=== PATIENT | female | born 1980 | race Caucasian/White ===

== ENCOUNTER 2018-10-30 15:16 | Emergency (ER) | payer SELFPAY ==
[2018-10-30 15:27] VITALS: BP 157/96; PULSE 80; RESP 18; TEMP 36.5; O2SAT 99
--- NOTE | 2018-10-30 15:55 | DI.RAD_ITS ---
SYMPTOM/DIAGNOSIS: CHEST PAIN PA AND LATERAL CHEST: Comparison is made with 01/20/12. The cardiac and mediastinal contours have a normal appearance. The lungs are well inflated and clear. No infiltrate or effusion is seen. IMPRESSION: Negative chest xray.
[2018-10-30] MEDS: Famotidine 20 MG TAB 40 MG PO (16:06)
[2018-10-30 17:17] LABS: Abs Immature Grans 0.02 k/cumm (0.0-0.09); Absolute Basophil Count 0.05 k/cumm (0.0-0.2); Absolute Lymphocyte Count 2.78 k/cumm (1.2-3.4); Absolute Monocyte Count 0.59 k/cumm (0.11-0.7); Absolute Neutrophil Count 4.46 k/cumm (1.2-6.7); Basophils % 0.6; Eosinophils % 3.7; HCT 41.5 % (36.0-46.0); HGB 14.6 g/dL (12.0-15.5); Immature Grans % 0.2; Lymphocytes % 33.9; Mean Corp. HGB Concentration 35.2 g/dL (32.0-36.0); Mean Corpuscular Hemoglobin 31.7 pg (27.0-33.0); Mean Platelet Volume 9.6 fL (8.0-11.0); Monocytes % 7.2; Neutrophils % 54.4; Platelet Count 304 x1000/uL (130-400); RBC 4.61 m/cumm (4.00-5.20); RBC Distribution Width 12.6 % (11.7-14.6)
[2018-10-30 17:33] LABS: ALT 50 U/L (12-78); AST 24 U/L (15-37); Albumin 4.6 g/dL (3.4-5.0); Alkaline Phosphatase 93 U/L (46-116); Anion Gap 10.9 mmol/L (3-11); BUN 14 mg/dL (7-18); Bilirubin, Total 0.4 mg/dL (0.2-1.0); CO2 27.1 mmol/L (21.0-32.0); CREATININE 0.99 mg/dL (0.55-1.02); Calcium 9.8 mg/dL (8.5-10.1); Chloride 101 mmol/L (98-107); Glucose 92 mg/dL (70-100); Sodium 139 mmol/L (136-145); Total Protein 8.1 g/dL (6.4-8.2)
[2018-10-30 17:35] LABS: Lipase 135 U/L (73-393); Troponin I < 0.02 ng/mL (0.00-0.06)
--- NOTE | 2018-10-30 17:45 | DI.VRAD_ITS ---
EXAM: XR Chest, 2 Views EXAM DATE/TIME: 10/30/2018 4:47 PM CLINICAL HISTORY: 37 years old, female; Chest pain; Type not specified TECHNIQUE: Imaging protocol: XR of the chest, 2 views. COMPARISON: CR CHEST 2 VIEWS PA,LAT 01/20/2012 1:16 PM FINDINGS: Lungs: Unremarkable. No consolidation. Pleural space: Unremarkable. No pleural effusion. No pneumothorax. Heart/Mediastinum: Unremarkable. No cardiomegaly. Bones/joints: Unremarkable. IMPRESSION: Negative chest. Dictated and Authenticated by: Janes Calles MD. Ordering:CLAUDY Tran MD
[2018-10-30 18:58] VITALS: RESP 18
--- NOTE | 2018-10-30 19:32 | ED.GENADUL_ITS ---
Discharge Plan Discharge Details Chief Complaint: Chest Pain Primary Care Provider: Calixto Rodriguez ED Provider: Marc Castillo Home Meds and New Rx's Prescriptions: No Action cetirizine [Zyrtec] 10 MG tablet 10 mg PO DAILY RF: 0 albuterol sulfate [ProAir HFA] 8.5 GM HFA aerosol inhaler 1 - 2 puff Inhalation Q6H PRN Qty: 1 RF: 3 levothyroxine 137 mcg tablet 137 mcg PO DAILY Qty: 90 RF: 0 multivitamin Tablet 1 tab PO DAILY RF: 0 Discharge Data Discharge Date/Time-TO BE ENTERED AT DEPARTURE: 10/30/18 19:36 Medical Decision Making 37yo f with history of asthma, hypothyroidsim and PCOS, here with upper abdominal pain that radiates to her back and feels exactly the same as prior episode of pancreatitis. ecg reviewed and interpreted by me: nsr 76bpm, nl axis, nondiagnsotic. Concern for pancreatitis. Consider AAA - low risk. I reviewed prior imagind report from abdominal ultrasound 09/08/16: IMPRESSION: 1. Cholelithiasis. Gallbladder wall thickening and mild pericholecystic fluid. Mild acute cholecystitis cannot be excluded. Please correlate clinically. 2. Mild splenomegaly. Consider ulcer and unlikely perforated viscous - no peritoneal findings on exam. cxr was obtained and reviewed by radiology: FINDINGS: Lungs: Unremarkable. No consolidation. Pleural space: Unremarkable. No pleural effusion. No pneumothorax. Heart/Mediastinum: Unremarkable. No cardiomegaly. Bones/joints: Unremarkable. IMPRESSION: Negative chest. Labs reviewed and nondiagnostic. Lipase wnl. No leukocytosis. Plan to reassess patient and discuss additional diagnostics. Patient was noted by nursing to elope from the ED while I was treating a patient with critical illness. I did not have an opportunity to reassess patient or to discuss additional diagnostic or treatment options with the patient. Please note that documentation of this visit was unintentionally delayed. HPI General Mode of arrival: ambulatory . Date/Time Provider Initiated Documentation: 10/30/18 15:29 . Limitations to Documentation: no limitations . Information obtained by: patient . HPI Narrative: 37yo f here with chief complaint of abdominal pain. Pain started 2 days ago and has been intermittent. Pain is described as dull throbbing. Localized to mid upper abdomen, epigastric and radiates to back. Pain feels exactly like when she had pancreatitis in the past. No associated fever. No vomiting. No chest pain. Related Data Home Medications Medication Instructions Recorded Confirmed cetirizine [Zyrtec] 10 mg PO DAILY tab-cap 03/20/14 10/30/18 albuterol sulfate [Proair Hfa] 1 - 2 puff INHALATION Q6H PRN #1 01/07/17 10/30/18 inhaler levothyroxine 137 mcg tablet 137 mcg PO DAILY #90 tab 05/14/18 10/30/18 multivitamin 1 tab PO DAILY 10/30/18 10/30/18 Previous Rx's Medication Instructions Recorded levothyroxine 137 mcg tablet 137 mcg PO DAILY #90 tab 05/14/18 Allergies Allergy/AdvReac Type Severity Reaction Status Date / Time Seasonal Allergies Allergy Mild Itchy Uncoded 10/30/18 19:00 water eyes, stuffy nose General Stated Complaint: Chest Pain BO: 2 Review of Systems Review of Systems All systems reviewed & are unremarkable except as noted in HPI and below Constitutional Denies fever(s) Cardiovascular Denies chest pain, Denies diaphoresis, Denies syncope, Denies edema, Denies palpitations and Denies dyspnea Respiratory Denies dyspnea Gastrointestinal Reports as per HPI and Reports abdominal pain Neurologic Denies syncope Endocrine Denies palpitations PFSH Medical History Asthma Hypothyroid PCOS (polycystic ovarian syndrome) Seasonal allergies Surgical History Cholecystectomy (09/10/16) retinal tear repair Family History Mother Diabetes Heart disease Grandfather Brain cancer Social History Smoking/Tobacco Use Status: Never Drug use: Never Do you feel safe in your relationship?: Yes Exam Const General: cooperative and no acute distress HENPA Mouth: moist mucous membranes Eyes Conjunctivae: normal conjunctivae Sclera: normal sclerae Neck Neck: trachea midline Resp Auscultation: clear to auscultation bilaterally, no rales, no rhonchi and no wheezes Cardio Jugular venous pressure: no JVD Rate: regular rate and not tachycardic Rhythm: regular rhythm GI Inspection: non-distended Palpation: soft, not firm, no guarding, no hepatomegaly, no masses, not rigid, no splenomegaly, tender in the epigastrum and No ascites Auscultation: normal bowel sounds Skin General skin exam: no rashes or lesions noted Neuro General: alert, awake and tone normal Extrem General: no edema Psych Appearance: grossly normal Mental Status: mental status grossly normal Course Vital Signs Temperature 36.5 C 10/30/18 15:27 Pulse 80 10/30/18 15:27 Respiratory Rate 18 10/30/18 15:27 Blood Pressure 157/96 H 10/30/18 15:27 Pulse Oximetry 99 10/30/18 15:27 Temperature 36.5 C 10/30/18 15:27 Temperature Source Temporal Artery Scan 10/30/18 15:27 Pulse 80 10/30/18 15:27 Respiratory Rate 18 10/30/18 18:58 Respiratory Effort Non-Labored 10/30/18 18:58 Respiratory Depth Normal 10/30/18 18:58 Respiratory Pattern Normal 10/30/18 18:58 Blood Pressure 157/96 H 10/30/18 15:27 Pulse Oximetry 99 10/30/18 15:27 Oxygen Delivery Method Room Air 10/30/18 15:27 Oxygen Flow Rate 0 10/30/18 15:27 Pain Level 7 10/30/18 18:58 Lab/Test Results Lab/Test Results: Laboratory Tests Range/Units 10/30/18 10/30/18 10/30/18 13:45 13:45 13:45 WBC Cancelled RBC Cancelled Hgb Cancelled Hct Cancelled MCV Cancelled MCH Cancelled MCHC Cancelled RDW Cancelled Plt Count Cancelled MPV Cancelled Immature Gran % Cancelled Neutrophils % Cancelled Band Neutrophils % Cancelled Lymphocytes % Cancelled Atypical Lymphs % Cancelled Monocytes % Cancelled Eosinophils % Cancelled Basophils % Cancelled Metamyelocytes % Cancelled Myelocytes % Cancelled Promyelocytes % Cancelled Absolute Neutrophils Cancelled Absolute Lymphocytes Cancelled Absolute Monocytes Cancelled Absolute Eosinophils Cancelled Absolute Basophils Cancelled Nucleated RBCs Cancelled Differential Comment Cancelled Other Cell Type Cancelled RBC Morphology Cancelled Polychromasia Cancelled Hypochromasia Cancelled Poikilocytosis Cancelled Basophilic Stippling Cancelled Anisocytosis Cancelled Microcytosis Cancelled Macrocytosis Cancelled Spherocytes Cancelled Target Cells Cancelled Tear Drop Cells Cancelled Ovalocytes Cancelled Stomatocytes Cancelled Antoine-Wadsworth Bodies Cancelled Lakia Cells Cancelled Acanthocytes (Spur) Cancelled Schistocytes Cancelled Sodium Cancelled Potassium Cancelled Chloride Cancelled Carbon Dioxide Cancelled Anion Gap Cancelled BUN Cancelled Creatinine Cancelled Estimated GFR/1.73 m2 Cancelled Glucose Cancelled Calcium Cancelled Total Bilirubin Cancelled AST Cancelled ALT Cancelled Alkaline Phosphatase Cancelled Troponin I Cancelled Total Protein Cancelled Albumin Cancelled Lipase Cancelled Range/Units 10/30/18 10/30/18 10/30/18 17:05 17:05 17:05 WBC 8.20 RBC 4.61 Hgb 14.6 Hct 41.5 MCV 90.0 MCH 31.7 MCHC 35.2 RDW 12.6 Plt Count 304 MPV 9.6 Immature Gran % 0.2 Neutrophils % 54.4 Band Neutrophils % Lymphocytes % 33.9 Atypical Lymphs % Monocytes % 7.2 Eosinophils % 3.7 Basophils % 0.6 Metamyelocytes % Myelocytes % Promyelocytes % Absolute Neutrophils 4.46 Absolute Lymphocytes 2.78 Absolute Monocytes 0.59 Absolute Eosinophils 0.30 Absolute Basophils 0.05 Nucleated RBCs Differential Comment Other Cell Type RBC Morphology Polychromasia Hypochromasia Poikilocytosis Basophilic Stippling Anisocytosis Microcytosis Macrocytosis Spherocytes Target Cells Tear Drop Cells Ovalocytes Stomatocytes Antoine-Wadsworth Bodies Lakia Cells Acanthocytes (Spur) Schistocytes Sodium 139 Potassium 4.0 Chloride 101 Carbon Dioxide 27.1 Anion Gap 10.9 BUN 14 Creatinine 0.99 Estimated GFR/1.73 m2 >= 60.00 Glucose 92 Calcium 9.8 Total Bilirubin 0.4 AST 24 ALT 50 Alkaline Phosphatase 93 Troponin I < 0.02 Total Protein 8.1 Albumin 4.6 Lipase 135
--- NOTE | 2018-10-30 19:32 | NUR.NOTE ---
Nursing Note: Pt eloped from ED at 1931. Asked pt along the walk out if I could help her in any way, she stated nope and continued walking. Airway patent, good color, NAD though appears upset. made aware. Pt's asked to see if she could be brought back to ED to sign paperwork for AMA, he left and pt has not returned. states she was done waiting. Registration aware. Pt had already completed registration paperwork.
== END 2018-10-30 19:36 ==
LOC: ER 15:44
PROVIDERS: Emergency Provider Student in an Organized Health Care Education/Training Program; PCP Family Medicine
DX: R10.10 Upper abdominal pain, unspecified (principal); Z53.29 Procedure and treatment not carried out because of patient's decision for other reasons
CPT/HCPCS: 36415; 80053; 83690; 93005; 99285; 71046; 84484; 85025; 93010

== ENCOUNTER 2019-07-26 07:37 | Outpatient (CLI) | payer SELFPAY ==
[2019-07-26 09:11] LABS: TSH 1.56 uIU/mL (0.36-3.74)
== END 2019-07-26 07:57 ==
PROVIDERS: PCP Family Medicine; Visit Provider Nurse Practitioner
DX: E03.9 Hypothyroidism, unspecified (principal)
CPT/HCPCS: 36415; 84443

== ENCOUNTER 2021-05-07 03:39 | Outpatient (CLI) | payer BC, SELFPAY ==
[2021-05-07 08:59] LABS: Abs Immature Grans 0.04 10^3/uL (0.0-0.06); Absolute Basophil Count 0.04 10^3/uL (0.0-0.2); Absolute Eosinophil Count 0.14 10^3/uL (0.0-0.7); Absolute Lymphocyte Count 1.71 10^3/uL (1.2-3.4); Absolute Monocyte Count 0.53 10^3/uL (0.1-0.8); Absolute Neutrophil Count 3.49 10^3/uL (1.2-6.7); Basophils % 0.7; Eosinophils % 2.4; HCT 39.2 % (36.0-46.0); HGB 13.6 g/dL (11.2-15.7); Immature Grans % 0.7; Lymphocytes % 28.7; MCHC 34.7 % (32.0-36.0); MCV 89.3 fL (80-95); MPV 9.4 fL (8.0-11.0); Monocytes % 8.9; Neutrophils % 58.6; Nucleated RBC 0 %; Platelet Count 267 10^3/uL (130-400); RBC 4.39 10^6/uL (3.93-5.22); RDW 12.1 % (11.7-14.6); RDW-SD 39.4 fL; WBC 5.95 10^3/uL (4.4-10.8)
[2021-05-07 09:53] LABS: ALT 72 U/L (14-59); AST 40 U/L (15-37); Albumin 4.5 g/dL (3.4-5.0); Alkaline Phosphatase 74 U/L (46-116); Anion Gap 10.2 mmol/L (3-11); BUN 12 mg/dL (7-18); Bilirubin, Total 0.4 mg/dL (0.2-1.0); CO2 27.8 mmol/L (21.0-32.0); CREATININE 0.8 mg/dL (0.55-1.02); Calcium 9.2 mg/dL (8.5-10.1); Calculated LDL 130 mg/dL (<100); Chloride 102 mmol/L (98-107); Cholesterol 213 mg/dL (<200); Glucose 92 mg/dL (74-106); HDL Cholesterol 38 mg/dL (40-60); Potassium 4.5 mmol/L (3.5-5.1); Sodium 140 mmol/L (136-145); TSH 2.97 uIU/mL (0.36-3.74); Total Protein 7.6 g/dL (6.4-8.2); Triglyceride 226 mg/dL (<150); Vitamin B12 364 pg/mL (193-986)
== END 2021-05-07 03:40 | disposition home or self-care (01) ==
LOC: LBO 03:39
PROVIDERS: PCP Family Medicine; Visit Provider Naturopath
DX: R53.83 Other fatigue (principal); E06.9 Thyroiditis, unspecified; E78.89 Other lipoprotein metabolism disorders
CPT/HCPCS: 36415; 80053; 80061; 82607; 84443; 85025

== ENCOUNTER 2021-10-24 02:21 | Outpatient (CLI) | payer BC, SELFPAY ==
[2021-10-24 10:25] LABS: Abs Immature Grans 0.03 10^3/uL (0.0-0.06); Absolute Basophil Count 0.03 10^3/uL (0.0-0.2); Absolute Eosinophil Count 0.13 10^3/uL (0.0-0.7); Absolute Monocyte Count 0.56 10^3/uL (0.1-0.8); Absolute Neutrophil Count 3.62 10^3/uL (1.2-6.7); Basophils % 0.5; Eosinophils % 2.1; HCT 38.7 % (36.0-46.0); HGB 13.3 g/dL (11.2-15.7); Immature Grans % 0.5; Lymphocytes % 29.2; MCH 30.8 pg (27.0-33.0); MCHC 34.4 % (32.0-36.0); MCV 89.6 fL (80-95); MPV 9.4 fL (8.0-11.0); Monocytes % 9.1; Neutrophils % 58.6; Nucleated RBC 0 %; Platelet Count 277 10^3/uL (130-400); RBC 4.32 10^6/uL (3.93-5.22); RDW 11.8 % (11.7-14.6); RDW-SD 38.5 fL; WBC 6.17 10^3/uL (4.4-10.8)
[2021-10-24 11:11] LABS: Iron 111 ug/dL (50-170); Total Iron Binding Capacity 410 ug/dL (250-450)
[2021-10-24 11:12] LABS: Hemoglobin A1C 5.2 % (<5.7)
[2021-10-24 11:33] LABS: Vitamin D 25 Total 34.1 ng/mL (30-100)
[2021-10-24 11:35] LABS: ALT 46 U/L (14-59); AST 24 U/L (15-37); Albumin 4.3 g/dL (3.4-5.0); Alkaline Phosphatase 77 U/L (46-116); BUN 12 mg/dL (7-18); Bilirubin, Total 0.4 mg/dL (0.2-1.0); CREATININE 0.8 mg/dL (0.55-1.02); Calculated LDL 111 mg/dL (<100); Chloride 103 mmol/L (98-107); Cholesterol 187 mg/dL (<200); Glucose 96 mg/dL (74-106); HDL Cholesterol 36 mg/dL (40-60); Sodium 140 mmol/L (136-145); TSH 0.92 uIU/mL (0.36-3.74); Total Protein 7.3 g/dL (6.4-8.2); Triglyceride 201 mg/dL (<150); Vitamin B12 454 pg/mL (193-986)
[2021-10-24 20:21] LABS: Thyroperoxidase Antibody <28 U/mL (<=60)
[2021-10-25 09:53] LABS: DHEA Sulfate 184 ug/dL (75-410)
[2021-10-25 20:31] LABS: Adrenocorticotropic Hormone, P 81 pg/mL
[2021-11-03 16:32] LABS: Testosterone, Free 0.29 ng/dL (0.06-1.00); Testosterone, Total 16 ng/dL (8-60)
== END 2021-10-24 02:22 | disposition home or self-care (01) ==
LOC: LBO 02:21
PROVIDERS: PCP Family Medicine; Visit Provider Internal Medicine Endocrinology, Diabetes & Metabolism
DX: E03.9 Hypothyroidism, unspecified (principal); R53.83 Other fatigue; E55.9 Vitamin D deficiency, unspecified; K76.0 Fatty (change of) liver, not elsewhere classified; R63.5 Abnormal weight gain
CPT/HCPCS: 36415; 80053; 80061; 82306; 82533; 82627; 84402; 84403; 82024; 82607; 83036; 83540; 83550; 84443; 84681; 85025; 86376

== ENCOUNTER 2021-12-11 09:43 | Outpatient (REF) | payer BC, SELFPAY ==
[2021-12-11 10:51] LABS: Creatinine,Urine 87.65 mg/dL
[2021-12-11 10:53] LABS: Creatinine,24hr Ur 1.84 g/24hr (0.60-1.80); Total Volume 2100 ml
[2021-12-16 17:18] LABS: Cortisol, U 16 mcg/24 h (3.5-45); Urine Volume 2100 mL
== END 2021-12-11 09:44 | disposition home or self-care (01) ==
LOC: LBN 09:43
PROVIDERS: PCP Family Medicine; Visit Provider Internal Medicine Endocrinology, Diabetes & Metabolism
DX: R63.5 Abnormal weight gain (principal); E27.0 Other adrenocortical overactivity
CPT/HCPCS: 81050; 82530; 82570; 83789

== ENCOUNTER 2022-01-07 12:00 | Outpatient (REF) | payer BC, SELFPAY ==
--- NOTE | 2022-01-07 10:15 | PAPFT_PTH ---
PATIENT: Alaina Venegas LOC: [facility] U#:[id number] AGE/SX: 41/F ROOM: RE01/07/[address]: Selina Parr NP : 1980 BED: DIS: 01/07/2022 SPEC #: [id number] RECD: 01/07/22 12:51 STATUS: CARO REJoão #: [id number] SETH: 01/07/22 10:[address]: Selina Parr NP DEPT: [facility] Cytology RECD BY: Nakita Mata ENTERED: 01/07/22 12:52 SP TYPE: PAPFT OT DR: Calixto Rodriguez MD Tissues: 1 - CX/ENDOCX FOR PAP SMEARS Procedures: PAP THIN PREP/[facility] Screening HPV DNA PROBE Comments: [id number]
== END 2022-01-07 12:01 | disposition home or self-care (01) ==
LOC: LBN 12:00
PROVIDERS: PCP Family Medicine; Visit Provider Nurse Practitioner Women's Health
DX: Z11.51 Encounter for screening for human papillomavirus (HPV) (principal)
CPT/HCPCS: 88142; 87624